=== PATIENT | female | born 2005 | race African-American/Black ===

== ENCOUNTER 2024-10-11 12:17 | Day surgery (SDC) | payer MEDICAID, OTHER ==
[2024-10-11 13:26] VITALS: BMI 41.8
[2024-10-11 13:39] LABS: Hematocrit 28.9 % (34.9-44.5); Hemoglobin 7.7 g/dL (12.0-15.5); Mean Corpuscular HGB CONC 26.6 g/dL (32.0-36.0); Mean Corpuscular Hemoglobin 16.1 pg (27.0-33.0); Mean Corpuscular Volume 60.6 fL (81.6-98.3); Mean Platelet Volume 8.7 fL (7.4-10.4); Platelet Count 543 10x3/uL (150-450); RBC Distribution Width 22.3 % (11.5-14.5); Red Blood Cell (RBC) Count 4.77 10x6/uL (3.90-5.03); White Blood Cell (WBC) Count 12.2 10x3/uL (3.5-10.5)
[2024-10-11 13:48] LABS: ALT (SGPT) 11 U/L (8-55); AST (SGOT) 17 U/L (5-34); Albumin 2.5 g/dL (3.5-5.0); Alkaline Phosphatase 139 U/L (40-110); Anion Gap 13 mmol/L (10-20); BUN (Urea Nitrogen) 5 mg/dL (7.0-18.7); Bilirubin, Total 0.4 mg/dL (0.2-1.2); Calc. Creatinine Clearance 229 mL/min (70-130); Calcium 9.1 mg/dL (7.8-10.44); Carbon Dioxide 22 mmol/L (22-29); Chloride 106 mmol/L (98-107); Estimated GFR 127; Globulin 4.6 g/dL (2.4-3.5); Glucose 81 mg/dL (70-105); Potassium 3.7 mmol/L (3.5-5.1); Protein, Total 7.1 g/dL (6.0-8.3); Sodium 137 mmol/L (136-145)
[2024-10-11 15:11] LABS: Fetal Membranes Rupture No Membranes Rupture (No Rupture)
[2024-10-11] MEDS: NIFEdipine XL 30 MG ER.TAB PO SCH (15:28)
[2024-10-11 15:29] VITALS: BP 140/92
[2024-10-11] MEDS: Labetalol HCl 100 MG TAB PO SCH (17:58)
== END 2024-10-11 19:25 | disposition home or self-care (01) ==
LOC: CSHLD/OP 12:17
PROVIDERS: ATTEND Family Medicine
DX: Z36.89 Encounter for other specified antenatal screening (principal); O11.3 Pre-existing hypertension with pre-eclampsia, third trimester; Z3A.00 Weeks of gestation of pregnancy not specified
CPT/HCPCS: 36415; 76819; 80053; 82570; 84112; 84156; 85027; 99285

== ENCOUNTER 2024-10-18 13:31 | Inpatient (IN) | payer OTHER ==
[2024-10-18 14:03] VITALS: BMI 42.5
[2024-10-18] MEDS ORDERED: Diphenoxylate HCl/Atropine Tablet PO PRN (14:51)
[2024-10-18] MEDS ORDERED: Famotidine/PF 20 mg/2ml Vial SLOW IVP PRN (14:51)
[2024-10-18] MEDS ORDERED: hydrALAZINE 20 MG/ML VIAL SLOW IVP PRN ×3 (14:51→19:11)
[2024-10-18] MEDS ORDERED: Tranexamic Acid 1,000 MG/10 ML VIAL IVP PRN (14:51)
[2024-10-18] MEDS ORDERED: Carboprost 250 MCG/ML AMP IM PRN (14:51)
[2024-10-18] MEDS ORDERED: Bicitra 30 ML UDCUP PO PRN (14:51)
[2024-10-18] MEDS ORDERED: Ondansetron PF 4 MG/2 ML Vial IVP PRN ×4 (14:51→19:11)
[2024-10-18] MEDS ORDERED: Misoprostol 200 MCG TAB PR PRN (14:51)
[2024-10-18] MEDS ORDERED: Promethazine HCl 25 MG/ML VIAL IM PRN ×3 (14:51→19:11)
[2024-10-18 14:53] LABS: Hematocrit 31.1 % (34.9-44.5); Mean Corpuscular HGB CONC 25.7 g/dL (32.0-36.0); Mean Corpuscular Hemoglobin 15.7 pg (27.0-33.0); Mean Corpuscular Volume 61.2 fL (81.6-98.3); Mean Platelet Volume 8.6 fL (7.4-10.4); Platelet Count 602 10x3/uL (150-450); Red Blood Cell (RBC) Count 5.08 10x6/uL (3.90-5.03); White Blood Cell (WBC) Count 11.2 10x3/uL (3.5-10.5)
[2024-10-18] MEDS ORDERED: CEFAZOLIN 3 GM in Sodium Chloride 0.9% 100 ML IVPB SCH (15:00)
[2024-10-18] MEDS ORDERED: Lactated Ringer's 1,000 ML IV SCH (15:00)
[2024-10-18] MEDS ORDERED: Oxytocin 30 units/NS 500 ML 500 ML IV SCH (15:00)
[2024-10-18 15:28] LABS: HBsAg Index 0.14 S/CO (0-0.99); Hep B Surf Ag - L&D Non-Reactive S/CO (NonReactive)
[2024-10-18 15:29] LABS: Syphilis Antibody Nonreactive (Nonreactive); Syphilis Antibody Index 0.07 S/CO (<1.00 Non-Reactive)
[2024-10-18] MEDS ORDERED: Meperidine HCl/PF 25 MG (1 mL) VIAL SLOW IVP PRN (16:47)
[2024-10-18] MEDS ORDERED: Naloxone HCl 0.4 mg/ml Vial IVP PRN ×2 (16:47)
[2024-10-18] MEDS ORDERED: Moisturizing Cream (Eucerin) 113 GM JAR TOP PRN (16:47)
[2024-10-18] MEDS ORDERED: HYDROmorphone 0.5 MG/0.5 ML SYRINGE SLOW IVP PRN (16:47)
[2024-10-18] MEDS ORDERED: diphenhydrAMINE 50 MG/ML VIAL IVP PRN (16:47)
[2024-10-18] MEDS ORDERED: fentaNYL 50 mcg/mL 1 mL Vial SLOW IVP PRN (16:47)
[2024-10-18] MEDS ORDERED: Naloxone HCl 0.4 mg/ml Vial IV PRN (16:47)
[2024-10-18] MEDS ORDERED: Communication Order-Pharmacy FS SCH (17:00)
[2024-10-18] MEDS ORDERED: Labetalol HCl 100 MG/20 ML VIAL SLOW IVP PRN (18:42)
[2024-10-18] MEDS: Labetalol HCl 200 MG TAB PO SCH (19:06)
[2024-10-18] MEDS ORDERED: Lanolin Ointment 7 GM TUBE TOP PRN (19:11)
[2024-10-18] MEDS ORDERED: Bisacodyl 10 MG SUPP PR PRN (19:11)
[2024-10-18] MEDS: CEFAZOLIN 2 GM VIAL ONE (22:00)
[2024-10-18] MEDS ORDERED: Ketorolac Tromethamine 30 MG (1 mL) VIAL IVP PRN (22:00)
[2024-10-18] MEDS: CEFAZOLIN 1 GM VIAL ONE (22:00)
[2024-10-18] MEDS: Morphine PF 10 MG/10 ML VIAL ONE (22:00)
[2024-10-18] MEDS: Dexamethasone 10 MG/ML VIAL ONE (22:01)
[2024-10-18] MEDS: Oxytocin 10 UNITS/ML VIAL ONE ×2 (22:01→22:02)
[2024-10-18] MEDS: Ketorolac Tromethamine 30 MG (1 mL) VIAL ONE (22:01)
[2024-10-18] MEDS: Ondansetron PF 4 MG/2 ML Vial ONE (22:01)
[2024-10-18] MEDS: PHENYLEPHRINE-NS 100 MCG/ML 10 ML SYRINGE ONE (22:02)
[2024-10-18] MEDS: Erythromycin Base 0.5% Oint 1 GM TUBE ONE (22:02)
[2024-10-18] MEDS: Docusate 100 MG CAP PO SCH (22:15)
[2024-10-18] MEDS: Ketorolac Tromethamine 30 MG (1 mL) VIAL IVP SCH (22:16)
[2024-10-18] MEDS: Ferrous Sulfate 325 MG TAB PO SCH (22:16)
[2024-10-19] MEDS: Labetalol HCl 200 MG TAB PO SCH (02:51)
[2024-10-19 04:16] LABS: Hematocrit 23.1 % (34.9-44.5); Mean Corpuscular Hemoglobin 15.9 pg (27.0-33.0); Mean Corpuscular Volume 61.3 fL (81.6-98.3); Mean Platelet Volume 9.2 fL (7.4-10.4); Platelet Count 508 10x3/uL (150-450); RBC Distribution Width 22.3 % (11.5-14.5); Red Blood Cell (RBC) Count 3.77 10x6/uL (3.90-5.03); White Blood Cell (WBC) Count 15.9 10x3/uL (3.5-10.5)
[2024-10-19] MEDS ORDERED: Meperidine HCl/PF 25 MG (1 mL) VIAL IM PRN (05:00)
[2024-10-19] MEDS: Hepatitis B Vaccine 10 MCG/0.5 ML SYR ONE (07:08)
[2024-10-19] MEDS: Phytonadione Neonatal 1 MG/0.5 ML AMP ONE (07:09)
[2024-10-19] MEDS: HYDROcodone/Acetaminophen 5/325 mg Tablet PO PRN ×2 (08:33→20:13)
[2024-10-19] MEDS: Prenatal Vitamin 1 TAB PO SCH (08:33)
[2024-10-19] MEDS: NIFEdipine XL 30 MG ER.TAB PO SCH (08:33)
[2024-10-19] MEDS: Simethicone Chewable 80 MG TAB PO PRN (08:33)
[2024-10-19] MEDS: diphenhydrAMINE 25 MG CAP PO PRN (11:42)
[2024-10-19] MEDS: Boostrix 0.5 ML (Tdap) VIAL (>/=7 yrs of age) IM ONE (17:08)
[2024-10-19] MEDS: Ibuprofen 800 MG TAB PO SCH (21:31)
[2024-10-20 11:13] LABS: Hemoglobin 5.9 g/dL (12.0-15.5); Mean Corpuscular HGB CONC 25.7 g/dL (32.0-36.0); Mean Corpuscular Hemoglobin 15.9 pg (27.0-33.0); Mean Platelet Volume 8.9 fL (7.4-10.4); Platelet Count 412 10x3/uL (150-450); RBC Distribution Width 22.5 % (11.5-14.5); Red Blood Cell (RBC) Count 3.71 10x6/uL (3.90-5.03); White Blood Cell (WBC) Count 13.7 10x3/uL (3.5-10.5)
[2024-10-21 03:58] LABS: Hematocrit 25.8 % (34.9-44.5); Hemoglobin 7.5 g/dL (12.0-15.5); Mean Corpuscular HGB CONC 29.1 g/dL (32.0-36.0); Mean Corpuscular Hemoglobin 18.9 pg (27.0-33.0); Mean Corpuscular Volume 65.2 fL (81.6-98.3); Mean Platelet Volume 9.2 fL (7.4-10.4); Platelet Count 415 10x3/uL (150-450); RBC Distribution Width 25.4 % (11.5-14.5); Red Blood Cell (RBC) Count 3.96 10x6/uL (3.90-5.03); White Blood Cell (WBC) Count 13.1 10x3/uL (3.5-10.5)
[2024-10-21 11:15] VITALS: BP 149/93
[2024-10-21 11:18] VITALS: TEMP 98.1
== END 2024-10-21 14:10 | disposition home or self-care (01) | DRG 788 ==
LOC: CSHLD/OP 13:31 → CSHLD 14:53 → CSHPP 21:01
PROVIDERS: ADMIT Family Medicine; ATTEND Family Medicine
PROC: 10D00Z1 Extraction of Products of Conception, Low, Open Approach (ICD-10-PCS; principal; 2024-10-18)
PROC: 30233N1 Transfusion of Nonautologous Red Blood Cells into Peripheral Vein, Percutaneous Approach (ICD-10-PCS; 2024-10-20)
DX: O11.4 Pre-existing hypertension with pre-eclampsia, complicating childbirth (principal); O76 Abnormality in fetal heart rate and rhythm complicating labor and delivery; Z3A.36 36 weeks gestation of pregnancy; Z37.0 Single live birth; Z79.82 Long term (current) use of aspirin; Z79.899 Other long term (current) drug therapy; Z88.0 Allergy status to penicillin; O99.02 Anemia complicating childbirth
CPT/HCPCS: 36415; 36430; 51702; 85027; 86780; 86850; 86900; 86901; 87340; 88307; 99285; J1100; J1885; J2274; J2405; J2590; P9016